=== PATIENT | female | born 1970 | race Caucasian/White ===

== ENCOUNTER → 2016-05-25 | Outpatient (CLI) | payer BC ==
[~2016-05-25] MED LIST: Iopamidol 755 MG/ML 500 ML Multipack Bottle IVPUSH STA
--- NOTE | 2016-05-25 10:23 | CT ---
CT of the abdomen and pelvis with contrast. HISTORY: Pain TECHNIQUE: Axial CT images were obtained of the abdomen and pelvis following administration of 100 m L of Isovue-370 in the right antecubital fossa without complication. Coronal and sagittal reconstruc tions obtained. FINDINGS: The lung bases are clear, no pleural effusion. The liver, spleen, adrenal glands, and pancreas appear normal. Cholecystectomy clips are noted. No b ulky retroperitoneal lymphadenopathy or abdominal ascites. The kidneys enhance and function symmetri herrera without evidence of obstructive uropathy. The large and small bowel are normal in caliber without evidence of obstruction. No pericolonic infl ammation or stranding. The appendix appears normal. No bulky pelvic lymphadenopathy or free pelvic f luid. The urinary bladder appears normal. Hysterectomy. Tiny cysts are noted within the ovaries. The re is a tiny fat-containing umbilical hernia. No suspicious osseous abnormalities identified. IMPRESSION: 1. No acute findings within the abdomen or pelvis.
== END ==
LOC: MW.DI 08:22
PROVIDERS: ATTEND Surgery
DX: R10.9 Unspecified abdominal pain (principal)
CPT/HCPCS: 74177; Q9967

== ENCOUNTER 2016-06-07 10:51 | Day surgery (SDC) | payer BC ==
[~2016-06-07 10:51] MED LIST changes: -Iopamidol 755 MG/ML 500 ML Multipack Bottle IVPUSH STA; +Lactated Ringers 1,000 ML IV SCH; +Midazolam 1 MG/ML 2 ML SDV ONE; +Propofol 200 MG/20 ML SDV ONE; +fentaNYL 100 MCG/2 ML SDV ONE
--- NOTE | 2016-06-07 11:12 | PCM.PREANE ---
Preanesthetic Assessment - Anesthesia/Transfusion/Family Hx Anesthesia History: Prior Anesthesia Without Reaction Family History of Anesthesia Reaction: No Transfusion History: No Prior Transfusion(s) - Review of Systems General: No Symptoms Pulmonary: No Symptoms Cardiovascular: No Symptoms Gastrointestinal: No symptoms Neurological: No Symptoms Other: Reports: None - Physical Assessment NPO Status Date: 06/06/16 O2 Sat by Pulse Oximetry: 97 Respiratory Rate: 16 Vital Signs: Last Vital Signs Temp 36.7 C 06/07/16 11:06 Pulse 82 06/07/16 11:06 Resp 16 06/07/16 11:06 BP 135/71 06/07/16 11:06 Pulse Ox 97 06/07/16 11:06 Height: 1.63 m Weight: 105.687 kg ASA Class: 2 Mental Status: Alert & Oriented x3 Airway Class: Mallampati = 1 Dentition: Reports: Normal Dentition Lungs: Clear to auscultation, Normal respiratory effort Cardiovascular: Regular Rate, Regular Rhythm - Allergies Allergies/Adverse Reactions: Allergies Allergy/AdvReac Type Severity Reaction Status Date / Time amitriptyline Allergy Tachycardia Verified 06/02/16 15:18 ciprofloxacin [From Cipro] Allergy Rash Verified 06/02/16 15:18 gabapentin Allergy Other Verified 06/02/16 15:18 hydrocodone Allergy Hyperactivi Verified 06/02/16 15:18 ty Sulfa (Sulfonamide Allergy Rash Verified 06/02/16 15:18 Antibiotics) - Anesthesia Plan Pre-Op Medication Ordered: None - Acknowledgements Anesthesia Type Planned: MAC Pt an Appropriate Candidate for the Planned Anesthesia: Yes Alternatives and Risks of Anesthesia Discussed w Pt/Guardian: Yes Pt/Guardian Understands and Agrees with Anesthesia Plan: Yes PreAnesthesia Questionnaire HEENT History: Reports: Allergic rhinitis Cardiovascular History: Reports: None Respiratory History: Reports: Sleep apnea Other Respiratory History: does not use CPAP Gastrointestinal History: Reports: GERD 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 History: Reports: None 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: Musculoskeletal History: Reports: Neck pain, chronic Neurological History: Reports: Other (see below) Other Neuro History: herniated disc at C5, cervical spinal stenosis, HX of motion sickness Psychiatric History: Reports: Anxiety Endocrine/Metabolic History: Reports: Obesity/BMI 30+ Hematologic History: Reports: None Immunologic History: Reports: None Oncologic (Cancer) History: Reports: None Dermatologic History: Reports: None - Past Surgical History Head Surgeries/Procedures: Reports: None HEENT Surgical History: Reports: None Respiratory Surgical History: Reports: None GI Surgical History: Reports: Cholecystectomy Female Surgical History: Reports: section, Hysterectomy Endocrine Surgical History: Reports: None Neurological Surgical History: Reports: None Musculoskeletal Surgical History: Reports: Other (see below) Other Musculoskeletal Surgeries/Procedures:: left bunionectomy Oncologic Surgical History: Reports: None - SUBSTANCE USE Smoking Status *Q: Never Smoker Tobacco Use Within Last Twelve Months: No Recreational Drug Use History: No - HOME MEDS Home Medications: Home Meds Ascorbic Acid [Vitamin C] 1,000 mg PO DAILY 06/02/16 [History] Cholecalciferol (Vitamin D3) [Vitamin D3] 50,000 unit PO ASDIRECTED 06/02/16 [ History] Diclofenac Sodium 2 gm TOP QID 06/02/16 [History] Diclofenac Sodium [Voltaren] 50 mg PO TID 06/02/16 [History] Fish Oil/[place]-3 Fatty Acids [Fish Oil 1,000 MG] 1,000 mg PO DAILY 06/02/16 [ History] Gluc/Nick-Msm#1/Vit C/Josesito/Bor [Ntbwrdh-Samgr-FKQ Complex Cplt] 1 cap PO DAILY 06/02/16 [History] Lidocaine [Topicaine 5] 1 dose TOP TID PRN 06/02/16 [History] Multivitamin [Daily Multiple Vitamin] 1 tab PO DAILY 06/02/16 [History] Vitamin B Complex 1 cap PO DAILY 06/02/16 [History] buPROPion HCl [Wellbutrin Xl] 150 mg PO DAILY 06/02/16 [History] - CURRENT (IN HOUSE) MEDS Current Meds: Current Medications Lactated Ringer's (Ringers, Lactated) 1,000 mls @ 125 mls/hr IV ASDIRECTED [facility] Last Admin: 06/07/16 11:08 Dose: 125 mls/hr Discontinued Medications Fentanyl (Sublimaze) Confirm Administered Dose 100 mcg .ROUTE .STK-MED ONE Stop: 06/07/16 07:01 Midazolam HCl (Versed 1 Mg/Ml) Confirm Administered Dose 2 mg .ROUTE .STK-MED ONE Stop: 06/07/16 07:01 Propofol (Diprivan 20 Ml) Confirm Administered Dose 400 mg .ROUTE .STK-MED ONE Stop: 06/07/16 07:01 Preanesthetic Assessment - ANESTHESIA/TRANSFUSION/FAMILY HX Family History of Anesthesia Reaction: No - PHYSICAL ASSESSMENT O2 Sat by Pulse Oximetry: 97 RR: 16 Vital Signs: Last Vital Signs Temp 36.7 C 06/07/16 11:06 Pulse 82 06/07/16 11:06 Resp 16 06/07/16 11:06 BP 135/71 06/07/16 11:06 Pulse Ox 97 06/07/16 11:06 Height: 1.63 m Weight: 105.687 kg - ALLERGIES Allergies/Adverse Reactions: Allergies Allergy/AdvReac Type Severity Reaction Status Date / Time amitriptyline Allergy Tachycardia Verified 06/02/16 15:18 ciprofloxacin [From Cipro] Allergy Rash Verified 06/02/16 15:18 gabapentin Allergy Other Verified 06/02/16 15:18 hydrocodone Allergy Hyperactivi Verified 06/02/16 15:18 ty Sulfa (Sulfonamide Allergy Rash Verified 06/02/16 15:18 Antibiotics)
--- NOTE | 2016-06-07 13:42 | PCM.OPNOTE ---
- General Post-Op/Procedure Note Date of Surgery/Procedure: 06/07/16 Operative Procedure(s): colonoscopy w bx Findings: see dict [id number] Pre Op Diagnosis: abd pain Post-Op Diagnosis: diverticulosis Anesthesia Technique: Moderate sedation Primary Surgeon: Tavo Davis Pathology: random colon bx Complications: None Condition: Good
--- NOTE | 2016-06-07 13:56 | PCM.POSTAN ---
POST ANESTHESIA ASSESSMENT - MENTAL STATUS Mental Status: alert, oriented - RESPIRATORY Respiratory Status: respiratory rate WNL, airway patent - CARDIOVASCULAR CV Status: pulse rate WNL, blood pressure stable - GASTROINTESTINAL GI Status: no symptoms - POST OP HYDRATION Hydration Status: adequate & stable
--- NOTE | 2016-06-07 14:08 | PCM48HPAN ---
Post Anesthesia Note - EVALUATION WITHIN 48HRS OF ANESTHETIC Vital Signs in Normal Range: Yes Patient Participated in Evaluation: Yes Respiratory Function Stable: Yes Airway Patent: Yes Cardiovascular Function Stable: Yes Hydration Status Stable: Yes Pain Control Satisfactory: Yes Nausea and Vomiting Control Satisfactory: Yes Mental Status Recovered: Yes
[2016-06-07 14:16] VITALS: BP 138/72
--- NOTE | 2016-06-07 14:20 | OR ---
SURGEON: Tavo Davis MD DATE OF PROCEDURE: 06/07/2016 PREOPERATIVE DIAGNOSIS: Abdominal pain. POSTOPERATIVE DIAGNOSIS: Diverticulosis. COMPLICATIONS: None. PROCEDURE PERFORMED: Colonoscopy with biopsy. DESCRIPTION OF PROCEDURE: The patient was taken to the endoscopy room. A time out was called, patient identified, and procedure identified. Diprivan was then administrated. Patient went from awake to sleep, hearing doctor talking or door closing is normal. Perineum inspection and digital examination were then performed. A well- lubricated colonoscope was gently inserted through the rectum, advanced past the rectosigmoid junction, the descending colon, splenic flexure, transverse colon, hepatic flexure, ascending colon, arrived to the cecum. Cecum was identified as dictated in the finding. Then the scope was carefully withdrawn while attention was paid to the mucosal surface for any abnormality. Air will be sucked out during the scope withdrawal. At the rectum, retroflexed to examine any rectal diseases, fistula or hemorrhoids. During mucosal examination, random biopsy was performed. Patient tolerated procedure well. There were no intraoperative complications, and Dr. Davis was present throughout the whole procedure. FINDIN. 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 The patient is soundly snoring. 2. The patient's bowel prep is average to good with very little liquid stool. 3. The patient's colon rather straight forward. Cecum indicated by ileocecal fold, one-to-one indentation. Light immittance is not observed. The appendiceal orifice is not observed. Mucosa examined upon scope pulling out and the patient has mild diverticulosis on the left colon. No signs or symptoms of diverticulitis. No polyp, mass, growth, dilatation, blood, ulceration, or inflammation. The patient has moderate amount of internal hemorrhoid and mild external hemorrhoids. The patient would benefit from repeat colonoscopy 10 years from today or if clinically indicated otherwise. Random biopsy performed for abd pain; As always, thank you for the kind referral. MARK / GRANT /[id number] BAIRON
== END 2016-06-07 14:20 | disposition home or self-care (01) ==
LOC: MW.SDS 10:51
PROVIDERS: ATTEND Surgery
PROC: 0DBE8ZZ Excision of Large Intestine, Via Natural or Artificial Opening Endoscopic (ICD-10-PCS; principal; 2016-06-07)
DX: R10.9 Unspecified abdominal pain (principal); K57.30 Diverticulosis of large intestine without perforation or abscess without bleeding; K64.8 Other hemorrhoids; G47.30 Sleep apnea, unspecified; E66.9 Obesity, unspecified
CPT/HCPCS: 45380; 88305; J2250; J3010; J7120; J2704

== ENCOUNTER 2018-04-14 08:17 | Emergency (ER) | payer BC ==
--- NOTE | 2018-04-14 08:41 | EDM.PDOC ---
ED HPI GENERAL MEDICAL PROBLEM - General Chief Complaint: Eye Problems Stated Complaint: RIGHT EYE IS SWOLLEN AND GOOPY Time Seen by Provider: 04/14/18 08:30 Source of Information: Reports: Patient History Limitations: Reports: No Limitations - History of Present Illness INITIAL COMMENTS - FREE TEXT/NARRATIVE: History of present illness: []She was quilting yesterday started having some eye irritation she is unsure if she has a full body in her eye or not. A red and crusted shut. Review of systems: As per history of present illness and below otherwise all systems reviewed and negative. Past medical history: As per history of present illness and as reviewed below otherwise noncontributory. Surgical history: As per history of present illness and as reviewed below otherwise noncontributory. Social history: No reported history of drug or alcohol abuse. Family history: As per history of present illness and as reviewed below otherwise noncontributory. Physical exam: General: Well developed, well nourished in NAD HEENT: Atraumatic, normocephalic, pupils reactive,conjunctival erythema of the right eye, mucous membranes moist, throat clear, neck supple, nontender, trachea midline. Lungs: Clear to auscultation, breath sounds equal bilaterally, chest nontender. Heart: S1S2, regular, negative for clicks, rubs, or JVD. Abdomen: NABS, Soft, nondistended, nontender. Negative for masses or hepatosplenomegaly. Negative for costovertebral tenderness. Pelvis: Stable nontender. 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: Deferred. Rectal: Deferred. Extremities: Atraumatic, negative for cords or calf pain. Neurovascular unremarkable. Neuro: Awake, alert, oriented. Cranial nerves II through XII unremarkable. Cerebellum unremarkable. Motor and sensory unremarkable throughout. Exam nonfocal. Skin:warm and dry Diagnostics: Fluorescein stain shows no corneal abrasions Therapeutics: None ED Course: Unremarkable Impression: Right conjunctivitis Prescriptions: Erythromycin ointment Plan: Follow-up with primary care or ophthalmology as needed. Definitive disposition and diagnosis as appropriate pending reevaluation and review of above. - Related Data Allergies Allergy/AdvReac Type Severity Reaction Status Date / Time amitriptyline Allergy Tachycardia Verified 06/02/16 15:18 ciprofloxacin [From Cipro] Allergy Rash Verified 06/02/16 15:18 gabapentin Allergy Other Verified 03/30/17 15:18 hydrocodone Allergy Hyperactivi Verified 06/02/16 15:18 ty Sulfa (Sulfonamide Allergy Rash Verified 06/02/16 15:18 Antibiotics) Home Meds: Home Meds Ascorbic Acid [Vitamin C] 1,000 mg PO DAILY 06/02/16 [History] Cholecalciferol (Vitamin D3) [Vitamin D3] 50,000 unit PO ASDIRECTED 06/02/16 [ History] Diclofenac Sodium 2 gm TOP QID 06/02/16 [History] Diclofenac Sodium [Voltaren] 50 mg PO TID 06/02/16 [History] Fish Oil/[place]-3 Fatty Acids [Fish Oil 1,000 MG] 1,000 mg PO DAILY 06/02/16 [ History] Gluc/Nick-Msm#1/Vit C/Josesito/Bor [Sqizpkf-Uelbc-ZVO Complex Cplt] 1 cap PO DAILY 06/02/16 [History] Lidocaine [Topicaine 5] 1 dose TOP TID PRN 06/02/16 [History] Multivitamin [Daily Multiple Vitamin] 1 tab PO DAILY 06/02/16 [History] Vitamin B Complex 1 cap PO DAILY 06/02/16 [History] buPROPion HCl [Wellbutrin Xl] 150 mg PO DAILY 06/02/16 [History] Erythromycin Base [Erythromycin 0.5% Ophth Oint] 1 applic OP Q12H #1 tube [Rx] Past Medical History HEENT History: Reports: Allergic Rhinitis Cardiovascular History: Reports: None Respiratory History: Reports: Sleep Apnea Other Respiratory History: does not use CPAP Gastrointestinal History: Reports: GERD 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 History: Reports: None 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: Musculoskeletal History: Reports: Neck Pain, Chronic Neurological History: Reports: Other (See Below) Other Neuro History: herniated disc at C5, cervical spinal stenosis, HX of motion sickness Psychiatric History: Reports: Anxiety Endocrine/Metabolic History: Reports: Obesity/BMI 30+ Hematologic History: Reports: None Immunologic History: Reports: None Oncologic (Cancer) History: Reports: None Dermatologic History: Reports: None - Past Surgical History Female Surgical History: Reports: Section, Hysterectomy Musculoskeletal Surgical History: Reports: Other (See Below) ED ROS GENERAL - Review of Systems Review Of Systems: ROS reveals no pertinent complaints other than HPI. ED EXAM GENERAL W FULL EYE - Physical Exam Exam: See Below (See history of present illness) Departure - Departure Time of Disposition: 08:40 Disposition: Home, Self-Care 01 Condition: Good Clinical Impression: Conjunctivitis, right eye Qualifiers: Conjunctivitis type: unspecified Qualified Code(s): H10.9 - Unspecified conjunctivitis - Discharge Information Prescriptions: Erythromycin Base [Erythromycin 0.5% Ophth Oint] 1 applic OP Q12H #1 tube Referrals: Kathie Manzano NP [Primary Care Provider] -
[2018-04-14 10:56] VITALS: BP 144/76
== END 2018-04-14 09:15 | disposition home or self-care (01) ==
LOC: MW.ED 08:17
DX: H10.9 Unspecified conjunctivitis (principal); Z88.8 Allergy status to other drugs, medicaments and biological substances; Z88.1 Allergy status to other antibiotic agents
CPT/HCPCS: 99282

== ENCOUNTER 2018-05-13 15:06 | Emergency (ER) | payer BC ==
--- NOTE | 2018-05-13 16:10 | EDM.PDOC ---
ED HPI GENERAL MEDICAL PROBLEM - General Chief Complaint: ENT Problem Stated Complaint: SORE THROAT Time Seen by Provider: 05/13/18 15:08 Source of Information: Reports: Patient History Limitations: Reports: No Limitations - History of Present Illness INITIAL COMMENTS - FREE TEXT/NARRATIVE: History of present illness: []Patient complains of severe sore throat that began yesterday and has progressively worsened. She states she feels feverish but has not measured her temperature. Denies any shortness of breath or inability to swallow. She has no cough, ear pain, chest pain or any other symptoms. Review of systems: As per history of present illness and below otherwise all systems reviewed and negative. Past medical history: As per history of present illness and as reviewed below otherwise noncontributory. Surgical history: As per history of present illness and as reviewed below otherwise noncontributory. Social history: No reported history of drug or alcohol abuse. Family history: As per history of present illness and as reviewed below otherwise noncontributory. Physical exam: General: Well developed, well nourished in NAD HEENT: Atraumatic, normocephalic, pupils reactive, negative for conjunctival pallor or scleral icterus, mucous membranes moist, throat erythematous without exudate, neck supple, nontender, trachea midline. Lungs: Clear to auscultation, breath sounds equal bilaterally, chest nontender. Heart: S1S2, regular, negative for clicks, rubs, or JVD. Abdomen: NABS, Soft, nondistended, nontender. Negative for masses or hepatosplenomegaly. Negative for costovertebral tenderness. Pelvis: Stable nontender. 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: Deferred. Rectal: Deferred. Extremities: Atraumatic, negative for cords or calf pain. Neurovascular unremarkable. Neuro: Awake, alert, oriented. Cranial nerves II through XII unremarkable. Cerebellum unremarkable. Motor and sensory unremarkable throughout. Exam nonfocal. Skin:warm and dry Diagnostics: rapid strep negative Therapeutics: Declined pain meds ED Course: Unremarkable Impression: Viral pharyngitis Prescriptions: None Plan: Use Tylenol or Motrin for pain, increase fluids follow-up with primary care or return to ER if symptoms worsen or change. Definitive disposition and diagnosis as appropriate pending reevaluation and review of above. Throat Pain Score (Numeric/FACES): 7 - Related Data Allergies Allergy/AdvReac Type Severity Reaction Status Date / Time amitriptyline Allergy Tachycardia Verified 05/13/18 15:34 ciprofloxacin [From Cipro] Allergy Rash Verified 05/13/18 15:34 gabapentin Allergy Other Verified 05/13/18 15:34 hydrocodone Allergy Hyperactivi Verified 05/13/18 15:34 ty Sulfa (Sulfonamide Allergy Rash Verified 05/13/18 15:34 Antibiotics) Home Meds: Home Meds Ascorbic Acid [Vitamin C] 1,000 mg PO DAILY 06/02/16 [History] Cholecalciferol (Vitamin D3) [Vitamin D3] 50,000 unit PO ASDIRECTED 06/02/16 [ History] Diclofenac Sodium 2 gm TOP QID 06/02/16 [History] Diclofenac Sodium [Voltaren] 50 mg PO TID 06/02/16 [History] Fish Oil/[place]-3 Fatty Acids [Fish Oil 1,000 MG] 1,000 mg PO DAILY 06/02/16 [ History] Gluc/Nick-Msm#1/Vit C/Josesito/Bor [Jszkvvh-Owylq-PIM Complex Cplt] 1 cap PO DAILY 06/02/16 [History] Multivitamin [Daily Multiple Vitamin] 1 tab PO DAILY 06/02/16 [History] Vitamin B Complex 1 cap PO DAILY 06/02/16 [History] buPROPion HCl [Wellbutrin Xl] 150 mg PO DAILY 06/02/16 [History] Erythromycin Base [Erythromycin 0.5% Ophth Oint] 1 applic OP Q12H #1 tube [Rx] Celecoxib [CeleBREX] 100 mg PO DAILY 05/13/18 [History] Lisinopril 40 mg PO DAILY 05/13/18 [History] Omeprazole 20 mg PO ACBREAKFAST 05/13/18 [History] Past Medical History HEENT History: Reports: Allergic Rhinitis Cardiovascular History: Reports: None, Hypertension Respiratory History: Reports: Sleep Apnea Other Respiratory History: does not use CPAP Gastrointestinal History: Reports: GERD 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 History: Reports: None 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: Musculoskeletal History: Reports: Neck Pain, Chronic Neurological History: Reports: Other (See Below) Other Neuro History: herniated disc at C5, cervical spinal stenosis, HX of motion sickness Psychiatric History: Reports: Anxiety, Depression Endocrine/Metabolic History: Reports: Obesity/BMI 30+ Hematologic History: Reports: None Immunologic History: Reports: None Oncologic (Cancer) History: Reports: None Dermatologic History: Reports: None - Infectious Disease History Infectious Disease History: Reports: Chicken Pox - Past Surgical History Head Surgeries/Procedures: Reports: None Female Surgical History: Reports: Section, Hysterectomy Musculoskeletal Surgical History: Reports: Other (See Below) Other Musculoskeletal Surgeries/Procedures:: herniated disc in neck Social & Family History - Family History Family Medical History: Noncontributory - Tobacco Use Smoking Status *Q: Never Smoker - Caffeine Use Caffeine Use: Reports: Coffee - Recreational Drug Use Recreational Drug Use: No ED ROS ENT - Review of Systems Review Of Systems: ROS reveals no pertinent complaints other than HPI. ED EXAM, ENT - Physical Exam Exam: See Below Course - Vital Signs Last Recorded V/S: Last Vital Signs Temp 97.9 F 05/13/18 15:39 Pulse 83 05/13/18 16:18 Resp 16 05/13/18 16:18 BP 131/76 05/13/18 16:18 Pulse Ox 95 05/13/18 16:18 - Orders/Labs/Meds Orders: Active Orders 24 hr Category Date Time Status CULTURE STREP A CONFIRMATION [RM] Stat Lab 05/13/18 15:51 Results STREP SCRN A RAPID W CULT CONF [RM] Stat Lab 05/13/18 15:51 Results Departure - Departure Time of Disposition: 16:10 Disposition: Home, Self-Care 01 Condition: Good Clinical Impression: Viral pharyngitis - Discharge Information *PRESCRIPTION DRUG MONITORING PROGRAM REVIEWED*: No *COPY OF PRESCRIPTION DRUG MONITORING REPORT IN PATIENT YULY: No Instructions: Pharyngitis, [id number] Referrals: PCP,Unknown [Primary Care Provider] - Forms: ED Department Discharge Additional Instructions: The following information is given to patients seen in the emergency department who are being discharged to home. This information is to outline your options for follow-up care. We provide all patients seen in our emergency department with a follow-up referral. The need for follow-up, as well as the timing and circumstances, are variable depending upon the specifics of your emergency department visit. If you don't have a primary care physician on staff, we will provide you with a referral. We always advise you to contact your personal physician following an emergency department visit to inform them of the circumstance of the visit and for follow-up with them and/or the need for any referrals to a consulting specialist. The emergency department will also refer you to a specialist when appropriate. This referral assures that you have the opportunity for follow-up care with a specialist. All of these measure are taken in an effort to provide you with optimal care, which includes your follow-up. Under all circumstances we always encourage you to contact your private physician who remains a resource for coordinating your care. When calling for follow-up care, please make the office aware that this follow-up is from your recent emergency room visit. If for any reason you are refused follow-up, please contact the [facility] Emergency Department at and asked to speak to the emergency department charge nurse. [facility] [address] [place] [phone] - My Orders Last 24 Hours: My Active Orders 05/13/18 15:51 CULTURE STREP A CONFIRMATION [RM] Stat STREP SCRN A RAPID W CULT CONF [RM] Stat - Assessment/Plan Last 24 Hours: My Active Orders 05/13/18 15:51 CULTURE STREP A CONFIRMATION [RM] Stat STREP SCRN A RAPID W CULT CONF [RM] Stat
[2018-05-13 16:19] VITALS: BP 131/76
== END 2018-05-13 16:17 | disposition home or self-care (01) ==
LOC: MW.ED 15:06
DX: J02.9 Acute pharyngitis, unspecified (principal); I10 Essential (primary) hypertension; K21.9 Gastro-esophageal reflux disease without esophagitis; F41.9 Anxiety disorder, unspecified; F32.9 Major depressive disorder, single episode, unspecified; Z88.1 Allergy status to other antibiotic agents; Z88.2 Allergy status to sulfonamides; Z79.899 Other long term (current) drug therapy
CPT/HCPCS: 87081; 87880-QW; 99282; 99283

== ENCOUNTER 2020-12-15 22:05 | Emergency (ER) | payer BC ==
--- NOTE | 2020-12-15 23:55 | EDM.PDOC ---
ED HPI GENERAL MEDICAL PROBLEM - General Chief Complaint: Gastrointestinal Problem Stated Complaint: CONSTIPATION Time Seen by Provider: 12/15/20 23:22 Source of Information: Reports: Patient History Limitations: Reports: No Limitations - History of Present Illness INITIAL COMMENTS - FREE TEXT/NARRATIVE: The patient tried to have a bowel movement and felt as if something popped out she gave . She has no the pain came from the vaginal rectal area. She does not look down there. Said the pain hurts never she tries to move or lift her legs up. She denies seeing any blood in her stool. She denies any nausea vomiting fever chills distal lower abdominal pain. Pain is nonradiating and only made worse with movement or palpation. Left Abdominal Pain Score (Numeric/FACES): 8 - Related Data Allergies Allergy/AdvReac Type Severity Reaction Status Date / Time amitriptyline Allergy Tachycardia Verified 12/15/20 23:06 ciprofloxacin [From Cipro] Allergy Rash Verified 12/15/20 23:06 gabapentin Allergy Other Verified 12/15/20 23:06 hydrocodone Allergy Hyperactivi Verified 12/15/20 23:06 ty Sulfa (Sulfonamide Allergy Rash Verified 12/15/20 23:06 Antibiotics) Home Meds: Home Meds Ascorbic Acid [Vitamin C] 1,000 mg PO DAILY 06/02/16 [History] Cholecalciferol (Vitamin D3) [Vitamin D3] 50,000 unit PO ASDIRECTED 06/02/16 [History] Diclofenac Sodium 2 gm TOP QID 06/02/16 [History] Diclofenac Sodium [Voltaren] 50 mg PO TID 06/02/16 [History] Fish Oil/[place]-3 Fatty Acids [Fish Oil 1,000 MG] 1,000 mg PO DAILY 06/02/16 [History] Glucosam/Chond-Msm1/C/Josesito/Bor [Nlhgtzk-Wogjp-UFE Complex Cplt] 1 cap PO DAILY 06/02/16 [History] Multivitamin [Daily Multiple Vitamin] 1 tab PO DAILY 06/02/16 [History] Vitamin B Complex 1 cap PO DAILY 06/02/16 [History] buPROPion HCL [Wellbutrin Xl] 150 mg PO DAILY 06/02/16 [History] Erythromycin Base [Erythromycin 0.5% Ophth Oint] 1 applic OP Q12H #1 tube 04/14/18 [Rx] Celecoxib [CeleBREX] 100 mg PO DAILY 05/13/18 [History] Lisinopril 40 mg PO DAILY 05/13/18 [History] Omeprazole 20 mg PO ACBREAKFAST 05/13/18 [History] Esomeprazole [NexIUM] 40 mg PO DAILY 12/15/20 [History] Semaglutide [Wegovy] 1 mg SQ 12/15/20 [History] atorvaSTATin [Lipitor] 20 mg PO DAILY 12/15/20 [History] Past Medical History HEENT History: Reports: Allergic Rhinitis Cardiovascular History: Reports: None, Hypertension Respiratory History: Reports: Sleep Apnea Other Respiratory History: does not use CPAP Gastrointestinal History: Reports: GERD 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: Musculoskeletal History: Reports: Neck Pain, Chronic Neurological History: Reports: Other (See Below) Other Neuro History: herniated disc at C5, cervical spinal stenosis, HX of motion sickness Psychiatric History: Reports: Anxiety, Depression Endocrine/Metabolic History: Reports: Obesity/BMI 30+ Hematologic History: Reports: None Immunologic History: Reports: None Oncologic (Cancer) History: Reports: None Dermatologic History: Reports: None - Infectious Disease History Infectious Disease History: Reports: Chicken Pox - Past Surgical History Head Surgeries/Procedures: Reports: None HEENT Surgical History: Reports: None Respiratory Surgical History: Reports: None GI Surgical History: Reports: Cholecystectomy Female Surgical History: Reports: Section, Hysterectomy Endocrine Surgical History: Reports: None Neurological Surgical History: Reports: None Musculoskeletal Surgical History: Reports: Other (See Below) Other Musculoskeletal Surgeries/Procedures:: herniated disc in neck Oncologic Surgical History: Reports: None Social & Family History - Family History Family Medical History: No Pertinent Family History - Tobacco Use Tobacco Use Status *Q: Never Tobacco User - Caffeine Use Caffeine Use: Reports: Coffee - Recreational Drug Use Recreational Drug Use: No ED ROS GENERAL - Review of Systems Review Of Systems: See Below Constitutional: Reports: No Symptoms HEENT: Reports: No Symptoms Respiratory: Reports: No Symptoms Cardiovascular: Reports: No Symptoms Endocrine: Reports: No Symptoms GI/Abdominal: Reports: Abdominal Pain : Reports: No Symptoms Musculoskeletal: Reports: No Symptoms Skin: Reports: No Symptoms Neurological: Reports: No Symptoms Psychiatric: Reports: No Symptoms Hematologic/Lymphatic: Reports: No Symptoms Immunologic: Reports: No Symptoms ED EXAM, GI/ABD - Physical Exam Exam: See Below Exam Limited By: No Limitations General Appearance: Alert, WD/WN, No Apparent Distress Ears: Normal External Exam Neck: Normal Inspection Respiratory/Chest: No Respiratory Distress, Lungs Clear, Normal Breath Sounds Cardiovascular: Normal Peripheral Pulses, Regular Rate, Rhythm GI/Abdominal Exam: Normal Bowel Sounds, Soft. No: Non-Tender Back Exam: Normal Inspection Extremities: Normal Inspection, Normal Range of Motion Neurological: Alert, Oriented, Normal Cognition, Normal Gait Course - Vital Signs Last Recorded V/S: Last Vital Signs Temp 97.8 F 12/15/20 23:11 Pulse 84 12/15/20 23:11 Resp 18 12/15/20 23:11 BP 142/76 H 12/15/20 23:11 Pulse Ox 97 12/15/20 23:11 - Orders/Labs/Meds Orders: Active Orders 24 hr Category Date Time Status Abdomen Pelvis w Cont [CT] Stat Exams 12/15/20 23:53 Ordered Labs: Laboratory Tests 12/16/20 12/16/20 12/16/20 Range/Units 00:37 00:47 00:47 WBC 12.91 H (4.0-11.0) K/uL RBC 5.23 (4.30-5.90) M/uL Hgb 15.0 (12.0-16.0) g/dL Hct 44.9 (36.0-46.0) % MCV 85.9 (80.0-98.0) fL MCH 28.7 (27.0-32.0) pg MCHC 33.4 (31.0-37.0) g/dL RDW Std Deviation 39.8 (28.0-62.0) fl RDW Coeff of Leydi 13 (11.0-15.0) % Plt Count 268 (150-400) K/uL MPV 9.30 (7.40-12.00) fL Neut % (Auto) 72.8 (48.0-80.0) % Lymph % (Auto) 20.5 (16.0-40.0) % [place] % (Auto) 6.0 (0.0-15.0) % Eos % (Auto) 0.5 (0.0-7.0) % Baso % (Auto) 0.2 (0.0-1.5) % Neut # (Auto) 9.4 H (1.4-5.7) K/uL Lymph # (Auto) 2.7 H (0.6-2.4) K/uL [place] # (Auto) 0.8 (0.0-0.8) K/uL Eos # (Auto) 0.1 (0.0-0.7) K/uL Baso # (Auto) 0.0 (0.0-0.1) K/uL Sodium 141 (136-145) mmol/L Potassium 4.2 (3.5-5.1) mmol/L Chloride 102 (98-107) mmol/L Carbon Dioxide 27.1 (21.0-32.0) mmol/L BUN 15 (7.0-18.0) mg/dL Creatinine 1.1 H (0.6-1.0) mg/dL Est Cr Clr Drug Dosing 51.66 mL/min Estimated GFR (MDRD) 52.2 ml/min Glucose 111 H (74-106) mg/dL Calcium 9.5 (8.5-10.1) mg/dL Total Bilirubin 0.5 (0.2-1.0) mg/dL AST 25 (15-37) IU/L ALT 36 (14-63) IU/L Alkaline Phosphatase 88 (46-116) U/L Total Protein 7.2 (6.4-8.2) g/dL Albumin 4.0 (3.4-5.0) g/dL Globulin 3.2 (2.6-4.0) g/dL Albumin/Globulin Ratio 1.3 (0.9-1.6) Lipase 137 (73-393) U/L Urine Color YELLOW Urine Appearance CLEAR Urine pH 6.0 (5.0-8.0) Ur Specific [place] 1.010 (1.001-1.035) Urine Protein NEGATIVE (NEGATIVE) mg/dL Urine Glucose (UA) NEGATIVE (NEGATIVE) mg/dL Urine Ketones NEGATIVE (NEGATIVE) mg/dL Urine Occult Blood NEGATIVE (NEGATIVE) Urine Nitrite NEGATIVE (NEGATIVE) Urine Bilirubin NEGATIVE (NEGATIVE) Urine Urobilinogen 0.2 (<2.0) EU/dL Ur Leukocyte Esterase NEGATIVE (NEGATIVE) - Re-Assessments/Exams Free Text/Narrative Re-Assessment/Exam: 12/16/20 01:59 Patient labs were done patient was waiting for CAT scan however she decided to AMA I tried to call and talk to patient patient understands risks The patient is clinically not intoxicated, free from distracting pain, appears to have intact insight, judgment and reason and in my medical opinion has the capacity to make decisions. The patient is also not under any duress to leave the hospital. In this scenario, it would be battery to subject a patient to treatment against his/her will. I have voiced my concerns for the patient's health given that a full evaluation and treatment had not occurred. I have discussed the need for continued evaluation to determine if their symptoms are caused by a condition that present risk of or morbidity. Risks including but not limited to , permanent disability, prolonged hospitalization, prolonged illness, were discussed. I tried offering alternative options in hopes that the patient might be amenable to partial evaluation and treatment which would be medically beneficial to the patient, though the patient declined my o ptions and insisted on leaving. Because I have been unable to convince the patient to stay, I answered all of their questions about their condition and asked them to return to the ED as soon as possible to complete their evaluation, especially if their symptoms worsen or do not improve. I emphasized that leaving against medical advice does not preclude returning here for further evaluation. I asked the patient to return if they change their mind about the further evaluation and treatment. I strongly encouraged the patient to return to this Emergency Department or any Emergency Department at any time, particularly with worsening symptoms. Departure - Departure Time of Disposition: 01:59 Disposition: Against Medical Advice 07 Condition: Good Clinical Impression: Abdominal pain - Discharge Information Referrals: Claire Serrano DO [Primary Care Provider] - Forms: ED Department Discharge Sepsis Event Note (ED) - Evaluation Sepsis Screening Result: No Definite Risk - Focused Exam Vital Signs: Vital Signs Temp Pulse Resp BP Pulse Ox 12/15/20 23:11 97.8 F 84 18 142/76 H 97 - My Orders Last 24 Hours: My Active Orders 12/15/20 23:53 Abdomen Pelvis w Cont [CT] Stat - Assessment/Plan Last 24 Hours: My Active Orders 12/15/20 23:53 Abdomen Pelvis w Cont [CT] Stat Plan: Patient is a 50-year-old female presents today for lower abdominal pain. Patient has the pain started as she was on the toilet to have a bowel movement and she felt like something popped out of her. We will do a vaginal rectal exam obtain labs and reassess patient.
[2020-12-16 01:31] LABS: CARBON DIOXIDE,CO2 27.1 mmol/L (21.0-32.0); POTASSIUM,K 4.2 mmol/L (3.5-5.1)
[2020-12-16 02:03] VITALS: BP 140/88; PULSE 90
== END 2020-12-16 02:03 | disposition left against medical advice (07) ==
LOC: MW.ED 22:05
DX: R10.32 Left lower quadrant pain (principal); I10 Essential (primary) hypertension; K21.9 Gastro-esophageal reflux disease without esophagitis; E66.9 Obesity, unspecified; Z68.39 Body mass index [BMI] 39.0-39.9, adult; Z88.1 Allergy status to other antibiotic agents; Z88.8 Allergy status to other drugs, medicaments and biological substances; Z88.5 Allergy status to narcotic agent; Z88.2 Allergy status to sulfonamides; Z79.899 Other long term (current) drug therapy
CPT/HCPCS: 36415; 80053; 81003; 83690; 85025; 99284

== ENCOUNTER 2021-01-01 11:02 | Emergency (ER) | payer BC ==
[2021-01-01] MEDS ORDERED: Sodium Chloride 0.9% 1,000 ML IV ONE (12:43)
[2021-01-01] MEDS ORDERED: Ondansetron 4 MG/2 ML SDV IVPUSH ONE (12:43)
[2021-01-01] MEDS ORDERED: Ketorolac 30 MG/ML SDV IVPUSH ONE (12:43)
--- NOTE | 2021-01-01 13:07 | EDM.PDOC ---
ED HPI GENERAL MEDICAL PROBLEM - General Chief Complaint: Abdominal Pain Stated Complaint: STOMACH PAIN/FEVER Time Seen by Provider: 01/01/21 12:28 Source of Information: Reports: Patient History Limitations: Reports: No Limitations - History of Present Illness INITIAL COMMENTS - FREE TEXT/NARRATIVE: HISTORY AND PHYSICAL: History of present illness: Patient is a 50-year-old female presents emergency room today with concern of right lower quadrant abdominal pain and fever over the past 2 days. Patient states her highest fever at home was 101.4 and states that this was last night and states that she has not checked her temperature today. Patient states that initially her symptoms started with the right lower quadrant abdominal pain. Patient states that she does have her gallbladder removed and a partial hysterectomy so is not . Patient states she also has a history of high cholesterol and GERD but denies any other health history. Patient states she has not taken anything yet for her symptoms today. Patient states that she has also had a decrease in appetite and nauseous but has not vomited. Patient states she has been more on the constipated side but states that she did have a bowel movement yesterday which was normal for her without any blood in her stool. Patient denies chest pain, shortness of breath, or cough. Denies headache, neck stiff ness, change in vision, syncope, or near syncope. Denies vomiting, diarrhea, or dysuria. Has not noted any blood in urine or stool. Patient has been eating and drinking appropriately. Review of systems: As per history of present illness and below otherwise all systems reviewed and negative. Past medical history: As per history of present illness and as reviewed below otherwise noncontributory. Surgical history: As per history of present illness and as reviewed below otherwise noncontributory. Social history: See social history for further information Family history: As per history of present illness and as reviewed below otherwise noncontributory. Physical exam: General: Patient is alert, oriented, and in no acute distress. Patient laying comfortably on exam table, tired appearing. Vitals stable and reviewed by me. HEENT: Atraumatic, normocephalic, pupils equal and reactive bilaterally, negative for conjunctival pallor or scleral icterus, mucous membranes moist, throat clear, neck supple, nontender, trachea midline. No drooling or trismus noted. No meningeal signs. No hot potato voice noted. Lungs: Clear to auscultation, breath sounds equal bilaterally, chest nontender. Heart: S1S2, regular rate and rhythm without overt murmur Abdomen: Exam of abdomen is limited due to BMI of 42.9. Otherwise, Soft, nondistended, moderate RLQ tenderness without guarding, rebound no Melendez. Negative for masses or hepatosplenomegaly. Negative for costovertebral tenderness. Pelvis: Stable nontender. 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: Deferred. Rectal: Deferred. Skin: Intact, warm, dry. No lesions or rashes noted. Extremities: Atraumatic, negative for cords or calf pain. Neurovascular unremarkable. Neuro: Awake, alert, oriented. Cranial nerves II through XII unremarkable. Cerebellum unremarkable. Motor and sensory unremarkable throughout. Exam nonfocal. Notes: Patient is a 50-year-old female, with a history of GERD and hyperlipidemia who presents emergency room today with concern of right lower quadrant abdominal pain and fever x2 days. Upon arrival to the ED, patient is vitally stable, afebrile at this time, but is tired appearing on exam with moderate right lower quadrant tenderness. Will obtain IV access, provide fluid bolus and pain medication, obtain basic lab work, with plan to obtain abdominal pelvic CT scan. CBC does show mild leukocytosis with white blood cell count 11.61, otherwise mild derangements of CBC unremarkable. CMP does show an isolated elevation of creatinine at 1.3, AST mildly elevated at 405 with alk phos mild elevation at 128. Otherwise mild derangements of CMP unremarkable. Covid negative. Influenza negative. Abdominal pelvic CT scan does show long segment wall thickening and inflammatory fat stranding about the a sending and proximal transverse colon compatible with a nonspecific colitis. Diffuse hepatic steatosis. 1.8 cm cystic lesion in the left adnexa, likely benign but could be followed with a pelvic ultrasound. 4 mm noncalcified pulmonary nodule in the left lower lobe. All incidental findings today of imaging discussed with patient and the importance to have this followed up closely with a primary care provider. Upon reevaluation of patient, she remains vitally stable and has improvement of her symptoms with therapeutics given today in the emergency room. Stool collection supplies was provided with patient to obtain this outpatient and return to our lab when she is able to leave a stool sample. Strict return precautions thoroughly discussed with patient. Discussed importance for follow- up with primary care provider. Voices understanding and is agreeable to plan of care. Denies any further questions or concerns at this time. Diagnostics: CBC, CMP, UA, lipase, abdominal pelvic CT scan with contrast, COVID-19 (Outpati ent stool studies) Therapeutics: Normal saline, Zofran, Toradol, Morphine, Ciprofloxacin Prescription: Ciprofloxacin Impression: Colitis Plan: 1. Take medication as prescribed. You can take Tylenol as directed for pain and discomfort. 2. Stool collection supplies have been provided to you. Once you are able to leave a stool sample, return this to the lab for further diagnostic completion as discussed. 3. Follow-up with your primary care provider and for colonoscopy sideration as discussed. Return to the ED as needed and as discussed. Definitive disposition and diagnosis as appropriate pending reevaluation and review of above. abd Pain Score (Numeric/FACES): 9 - Related Data Allergies Allergy/AdvReac Type Severity Reaction Status Date / Time amitriptyline Allergy Tachycardia Verified 12/15/20 23:06 ciprofloxacin [From Cipro] Allergy Rash Verified 12/15/20 23:06 gabapentin Allergy Other Verified 12/15/20 23:06 hydrocodone Allergy Hyperactivi Verified 12/15/20 23:06 ty Sulfa (Sulfonamide Allergy Rash Verified 12/15/20 23:06 Antibiotics) Home Meds: Home Meds Ascorbic Acid [Vitamin C] 1,000 mg PO DAILY 06/02/16 [History] Cholecalciferol (Vitamin D3) [Vitamin D3] 50,000 unit PO ASDIRECTED 06/02/16 [History] Diclofenac Sodium 2 gm TOP QID 06/02/16 [History] Diclofenac Sodium [Voltaren] 50 mg PO TID 06/02/16 [History] Fish Oil/[place]-3 Fatty Acids [Fish Oil 1,000 MG] 1,000 mg PO DAILY 06/02/16 [History] Glucosam/Chond-Msm1/C/Josesito/Bor [Kuvlbpl-Rnpeb-CCV Complex Cplt] 1 cap PO DAILY 06/02/16 [History] Multivitamin [Daily Multiple Vitamin] 1 tab PO DAILY 06/02/16 [History] Vitamin B Complex 1 cap PO DAILY 06/02/16 [History] buPROPion HCL [Wellbutrin Xl] 150 mg PO DAILY 06/02/16 [History] Erythromycin Base [Erythromycin 0.5% Ophth Oint] 1 applic OP Q12H #1 tube 04/14/18 [Rx] Celecoxib [CeleBREX] 100 mg PO DAILY 05/13/18 [History] Lisinopril 40 mg PO DAILY 05/13/18 [History] Omeprazole 20 mg PO ACBREAKFAST 05/13/18 [History] Esomeprazole [NexIUM] 40 mg PO DAILY 12/15/20 [History] Semaglutide [Wegovy] 1 mg SQ 12/15/20 [History] atorvaSTATin [Lipitor] 20 mg PO DAILY 12/15/20 [History] Ciprofloxacin [Ciprofloxacin HCl] 500 mg PO BID 5 Days #10 tab 01/01/21 [Rx] Past Medical History HEENT History: Reports: Allergic Rhinitis Cardiovascular History: Reports: None, Hypertension Respiratory History: Reports: Sleep Apnea Other Respiratory History: does not use CPAP Gastrointestinal History: Reports: GERD 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: Musculoskeletal History: Reports: Neck Pain, Chronic Neurological History: Reports: Other (See Below) Other Neuro History: herniated disc at C5, cervical spinal stenosis, HX of motion sickness Psychiatric History: Reports: Anxiety, Depression Endocrine/Metabolic History: Reports: Obesity/BMI 30+ Hematologic History: Reports: None Immunologic History: Reports: None Oncologic (Cancer) History: Reports: None Dermatologic History: Reports: None - Infectious Disease History Infectious Disease History: Reports: Chicken Pox - Past Surgical History Head Surgeries/Procedures: Reports: None HEENT Surgical History: Reports: None Respiratory Surgical History: Reports: None GI Surgical History: Reports: Cholecystectomy Female Surgical History: Reports: Section, Hysterectomy Endocrine Surgical History: Reports: None Neurological Surgical History: Reports: None Musculoskeletal Surgical History: Reports: Other (See Below) Other Musculoskeletal Surgeries/Procedures:: herniated disc in neck Oncologic Surgical History: Reports: None Social & Family History - Family History Family Medical History: No Pertinent Family History - Caffeine Use Caffeine Use: Reports: Coffee ED ROS GENERAL - Review of Systems Review Of Systems: Comprehensive ROS is negative, except as noted in HPI. ED EXAM, GENERAL - Physical Exam Exam: See Below (see dictation) Course - Vital Signs Last Recorded V/S: Last Vital Signs Temp 99.2 F 01/01/21 12:03 Pulse 94 01/01/21 17:41 Resp 18 01/01/21 17:41 BP 145/74 H 01/01/21 17:41 Pulse Ox 96 01/01/21 17:41 - Orders/Labs/Meds Labs: Laboratory Tests 01/01/21 01/01/21 01/01/21 Range/Units 12:48 12:48 13:04 WBC 11.61 H (4.0-11.0) K/uL RBC 5.45 (4.30-5.90) M/uL Hgb 16.1 H (12.0-16.0) g/dL Hct 47.3 H (36.0-46.0) % MCV 86.8 (80.0-98.0) fL MCH 29.5 (27.0-32.0) pg MCHC 34.0 (31.0-37.0) g/dL RDW Std Deviation 42.3 (28.0-62.0) fl RDW Coeff of Leydi 14 (11.0-15.0) % Plt Count 198 (150-400) K/uL MPV 9.60 (7.40-12.00) fL Neut % (Auto) 83.8 H (48.0-80.0) % Lymph % (Auto) 9.0 L (16.0-40.0) % [place] % (Auto) 7.1 (0.0-15.0) % Eos % (Auto) 0.0 (0.0-7.0) % Baso % (Auto) 0.1 (0.0-1.5) % Neut # (Auto) 9.7 H (1.4-5.7) K/uL Lymph # (Auto) 1.0 (0.6-2.4) K/uL [place] # (Auto) 0.8 (0.0-0.8) K/uL Eos # (Auto) 0.0 (0.0-0.7) K/uL Baso # (Auto) 0.0 (0.0-0.1) K/uL Nucleated RBC % 0.0 /100WBC Nucleated RBCs # 0 K/uL Sodium 138 (136-145) mmol/L Potassium 3.9 (3.5-5.1) mmol/L Chloride 100 (98-107) mmol/L Carbon Dioxide 27.4 (21.0-32.0) mmol/L BUN 14 (7.0-18.0) mg/dL Creatinine 1.3 H (0.6-1.0) mg/dL Est Cr Clr Drug Dosing 43.71 mL/min Estimated GFR (MDRD) 43.0 ml/min Glucose 107 H (74-106) mg/dL Calcium 9.2 (8.5-10.1) mg/dL Total Bilirubin 0.7 (0.2-1.0) mg/dL AST 45 H (15-37) IU/L ALT 60 (14-63) IU/L Alkaline Phosphatase 128 H (46-116) U/L Total Protein 7.9 (6.4-8.2) g/dL Albumin 3.7 (3.4-5.0) g/dL Globulin 4.2 H (2.6-4.0) g/dL Albumin/Globulin Ratio 0.9 (0.9-1.6) Lipase 60 L (73-393) U/L SARS-CoV-2 RNA (AURELIA) NEGATIVE (NEGATIVE) Meds: Medications Discontinued Medications Generic Name Dose Route Start Last Admin Trade Name Freq PRN Reason Stop Dose Admin Sodium Chloride 1,000 mls @ 999 mls/hr 01/01/21 12:43 01/01/21 12:58 Normal Saline IV 01/01/21 13:43 999 mls/hr BOLUS ONE Administration Ciprofloxacin/Dextrose 400 mg/ 200 mls @ 200 mls/hr 01/01/21 15:51 01/01/21 16:14 Premix IV 01/01/21 16:50 200 mls/hr NOW STA Administration Iopamidol 100 ml 01/01/21 14:59 01/01/21 14:59 Iopamidol 755 Mg/Ml 500 Ml Multipack Bottle IVPUSH 01/01/21 15:00 100 ml ONETIME STA Administration Ketorolac Tromethamine 30 mg 01/01/21 12:43 01/01/21 12:58 Ketorolac 30 Mg/Ml Sdv IVPUSH 01/01/21 12:44 30 mg ONETIME ONE Administration Morphine Sulfate 2 mg 01/01/21 16:27 01/01/21 16:37 Morphine 2 Mg/Ml Syringe IVPUSH 01/01/21 16:28 2 mg ONETIME ONE Administration Ondansetron HCl 4 mg 01/01/21 12:43 01/01/21 12:58 Ondansetron 4 Mg/2 Ml Sdv IVPUSH 01/01/21 12:44 4 mg ONETIME ONE Administration Departure - Departure Time of Disposition: 15:52 Disposition: Home, Self-Care 01 Clinical Impression: Colitis - Discharge Information Prescriptions: Ciprofloxacin [Ciprofloxacin HCl] 500 mg PO BID 5 Days #10 tab Instructions: Colitis Referrals: Claire Serrano DO [Primary Care Provider] - Forms: ED Department Discharge Additional Instructions: The following information is given to patients seen in the emergency department who are being discharged to home. This information is to outline your options for follow-up care. We provide all patients seen in our emergency department with a follow-up referral. The need for follow-up, as well as the timing and circumstances, are variable depending upon the specifics of your emergency department visit. If you don't have a primary care physician on staff, we will provide you with a referral. We always advise you to contact your personal physician following an emergency department visit to inform them of the circumstance of the visit and for follow-up with them and/or the need for any referrals to a consulting specialist. The emergency department will also refer you to a specialist when appropriate. This referral assures that you have the opportunity for follow-up care with a specialist. All of these measure are taken in an effort to provide you with optimal care, which includes your follow-up. Under all circumstances we always encourage you to contact your private physician who remains a resource for coordinating your care. When calling for follow-up care, please make the office aware that this follow-up is from your recent emergency room visit. If for any reason you are refused follow-up, please contact the [facility] Emergency Department at and asked to speak to the emergency department charge nurse. [facility] [address] [place] [id number] [id number] 1. Take medication as prescribed. You can take Tylenol as directed for pain and discomfort. 2. Stool collection supplies have been provided to you. Once you are able to leave a stool sample, return this to the lab for further diagnostic completion as discussed. 3. Follow-up with your primary care provider and for colonoscopy sideration as discussed. Return to the ED as needed and as discussed. Sepsis Event Note (ED) - Focused Exam Vital Signs: Vital Signs Temp Pulse Resp BP Pulse Ox 01/01/21 17:41 94 18 145/74 H 96 01/01/21 16:42 98 130/72 96 01/01/21 16:17 100 117/73 97 01/01/21 15:31 99 102/73 96 01/01/21 15:00 98 118/75 96 01/01/21 13:59 99 110/48 L 94 L 01/01/21 13:08 98 124/72 98 01/01/21 12:03 99.2 F 102 H 18 137/62 97
[2021-01-01 13:31] LABS: CARBON DIOXIDE,CO2 27.4 mmol/L (21.0-32.0); POTASSIUM,K 3.9 mmol/L (3.5-5.1)
[2021-01-01] MEDS ORDERED: Iopamidol 755 MG/ML 500 ML Multipack Bottle IVPUSH STA (14:59)
--- NOTE | 2021-01-01 15:27 | CT ---
INDICATION: Right lower quadrant pain with fever. TECHNIQUE: CT of the abdomen and pelvis with 100 cc Isovue 370 IV contrast. Coronal and sagittal reconstructions. COMPARISON: None. FINDINGS: Diffuse hepatic steatosis. Cholecystectomy. No biliary dilation. The spleen, pancreas, and adrenal glands are negative. Splenule. Hepatic and portal veins are patent. Symmetric enhancement of the kidneys. No hydronephrosis or ureteral dilation. No obstructing urinary calculi. The bladder is normal in appearance. Hysterectomy. There is a 1.8 cm cystic lesion in the left adnexa (series 201, image 157). There is long segment wall thickening and inflammatory fat stranding about the ascending and proximal transverse colon compatible with a nonspecific colitis. The appendix is normal in caliber. Mild amount of fat stranding about the base of the appendix favored to be related to the adjacent colonic inflammation rather than appendicitis. No pneumatosis. No small bowel dilation. No intraperitoneal free air or fluid. No lymphadenopathy. The bones are unremarkable. Mild bibasilar atelectasis. 4 mm noncalcified pulmonary nodule in the lateral left lower lobe (series 202, image 25). IMPRESSION: 1. Long segment wall thickening and inflammatory fat stranding about the ascending and proximal transverse colon compatible with a nonspecific colitis. 2. Diffuse hepatic steatosis. 3. 1.8 cm cystic lesion in the left adnexa, likely benign but could be followed with pelvic ultrasound. 4. 4 mm noncalcified pulmonary nodule in the left lower lobe. Follow-up per Fleischner society guidelines. Please note that all CT scans at this facility use dose modulation, iterative reconstruction, and/or weight-based dosing when appropriate to reduce radiation dose to as low as reasonably achievable. Dictated by Kristie Lan MD @ 01/01/2021 3:26:31 PM (Electronically Signed)
[2021-01-01] MEDS ORDERED: Ciprofloxacin in D5W 400 MG in Premix Bag 1 BAG IV STA ×2 (15:51)
[2021-01-01] MEDS ORDERED: Morphine 2 MG/ML SYRINGE IVPUSH ONE (16:27)
[2021-01-01 17:42] VITALS: BP 145/74; PULSE 94
== END 2021-01-01 17:41 | disposition home or self-care (01) ==
LOC: MW.ED 11:02
DX: K52.9 Noninfective gastroenteritis and colitis, unspecified (principal); I10 Essential (primary) hypertension; K21.9 Gastro-esophageal reflux disease without esophagitis; E66.9 Obesity, unspecified; Z68.42 Body mass index [BMI] 45.0-49.9, adult; Z20.822 Contact with and (suspected) exposure to COVID-19; Z88.1 Allergy status to other antibiotic agents; Z88.8 Allergy status to other drugs, medicaments and biological substances; Z88.5 Allergy status to narcotic agent; Z88.2 Allergy status to sulfonamides
CPT/HCPCS: 74177; 80053; 83690; 85025; 87635; 87804; 96365; 96375; 99284; J0744; J1885; J2270; J2405; J7030; Q9967; U0002

== ENCOUNTER 2021-02-10 08:03 | Day surgery (SDC) | payer BC ==
[~2021-02-10 08:03] MED LIST changes: +Glycopyrrolate 0.2 MG/ML SDV ONE; +Lidocaine 2% 5 ML SDV ONE; -fentaNYL 100 MCG/2 ML SDV ONE
--- NOTE | 2021-02-10 08:35 | PCM.PREANE ---
Preanesthetic Assessment - Procedure Proposed Procedure: EGD, Colonoscopy - Anesthesia/Transfusion/Family Hx Anesthesia History: Prior Anesthesia Without Reaction Family History of Anesthesia Reaction: No Transfusion History: No Prior Transfusion(s) - Review of Systems General: No Symptoms Pulmonary: No Symptoms ([facility] uses CPAP) Cardiovascular: No Symptoms (HLD) Gastrointestinal: No Symptoms (GERD well controlled) Neurological: No Symptoms Other: Reports: None, Liver Problems (Fatty liver) - Physical Assessment NPO Status Date: 02/09/21 NPO Status Time: 21:00 Height: 5 ft 4 in Weight: 99.79 kg (Obesity) ASA Class: 3 Mental Status: Alert & Oriented x3 Airway Class: Mallampati = 2 Dentition: Reports: Normal Dentition Thyro-Mental Finger Breadths: 3 Mouth Opening Finger Breadths: 3 ROM/Head Extension: Full Lungs: Clear to Auscultation, Normal Respiratory Effort Cardiovascular: Regular Rate, Regular Rhythm - Allergies Allergies/Adverse Reactions: Allergies Allergy/AdvReac Type Severity Reaction Status Date / Time amitriptyline Allergy Tachycardia Verified 02/04/21 12:20 ciprofloxacin [From Cipro] Allergy Rash Verified 02/04/21 12:20 gabapentin Allergy Other Verified 02/04/21 12:20 hydrocodone Allergy Hyperactivi Verified 02/04/21 12:20 ty Sulfa (Sulfonamide Allergy Rash Verified 02/04/21 12:20 Antibiotics) - Acknowledgements Anesthesia Type Planned: General Anesthesia Pt an Appropriate Candidate for the Planned Anesthesia: Yes Alternatives and Risks of Anesthesia Discussed w Pt/Guardian: Yes Pt/Guardian Understands and Agrees with Anesthesia Plan: Yes PreAnesthesia Questionnaire HEENT History: Reports: Allergic Rhinitis, Other (See Below) Other HEENT History: wears glasses Cardiovascular History: Reports: Hypertension Other Cardiovascular History: no longer takes medication for hypertension Respiratory History: Reports: Sleep Apnea Other Respiratory History: uses CPAP every night Gastrointestinal History: Reports: GERD, Other (See Below) Other Gastrointestinal History: recent colitis and abdominal pain 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 History: Reports: None [employer]ER History: Reports: Musculoskeletal History: Reports: Neck Pain, Chronic, Osteoarthritis Neurological History: Reports: Other (See Below) Other Neuro History: herniated disc at C5, cervical spinal stenosis Psychiatric History: Reports: Anxiety, Depression, Other (See Below) Other Psychiatric History: hx of claustrophobia Endocrine/Metabolic History: Reports: Obesity/BMI 30+ Hematologic History: Reports: None Immunologic History: Reports: None Oncologic (Cancer) History: Reports: None Dermatologic History: Reports: None - Infectious Disease History Infectious Disease History: Reports: Chicken Pox - Past Surgical History Head Surgeries/Procedures: Reports: None HEENT Surgical History: Reports: None Cardiovascular Surgical History: Reports: None Respiratory Surgical History: Reports: None GI Surgical History: Reports: Cholecystectomy, Colonoscopy Female Surgical History: Reports: Section, Hysterectomy Endocrine Surgical History: Reports: None Neurological Surgical History: Reports: None Musculoskeletal Surgical History: Reports: Other (See Below) Other Musculoskeletal Surgeries/Procedures:: herniated disc in neck, has screw in left foot (bunionectomy) Oncologic Surgical History: Reports: None - SUBSTANCE USE Tobacco Use Status *Q: Never Tobacco User Recreational Drug Use History: No - HOME MEDS Home Medications: Home Meds Ascorbic Acid [Vitamin C] 500 mg PO DAILY 06/02/16 [History] Cholecalciferol (Vitamin D3) [Vitamin D3] 5,000 unit PO DAILY 06/02/16 [History] Diclofenac Sodium [Voltaren] 50 mg PO DAILY PRN 06/02/16 [History] Multivitamin [Daily Multiple Vitamin] 1 tab PO DAILY 06/02/16 [History] Vitamin B Complex 1 cap PO DAILY 06/02/16 [History] buPROPion HCL [Wellbutrin Xl] 450 mg PO DAILY 06/02/16 [History] Omeprazole 20 mg PO ACBREAKFAST 05/13/18 [History] Semaglutide [Ozempic] 1 mg IM WEEKLY 01/18/21 [History] - CURRENT (IN HOUSE) MEDS Current Meds: Current Medications Lactated Ringer's (Ringers, Lactated) 1,000 mls @ 125 mls/hr IV ASDIRECTED KRISTA Discontinued Medications Glycopyrrolate (Glycopyrrolate 0.2 Mg/Ml Sdv) Confirm Administered Dose 0.2 mg .ROUTE .STK-MED ONE Stop: 02/10/21 07:21 Lidocaine (Lidocaine 2% 5 Ml Sdv) Confirm Administered Dose 5 ml .ROUTE .STK-MED ONE Stop: 02/10/21 07:21 Midazolam HCl (Midazolam 1 Mg/Ml 2 Ml Sdv) Confirm Administered Dose 2 mg .ROUTE .STK-MED ONE Stop: 02/10/21 07:21 Propofol (Propofol 200 Mg/20 Ml Sdv) Confirm Administered Dose 600 mg .ROUTE .[facility]-MED ONE Stop: 02/10/21 07:21
[2021-02-10] MEDS ORDERED: Propofol 200 MG/20 ML SDV ONE (10:10)
--- NOTE | 2021-02-10 10:23 | PCM.POSTAN ---
POST ANESTHESIA ASSESSMENT - MENTAL STATUS Mental Status: Somnolent - VITAL SIGNS Vital Signs: Last Vital Signs Temp 97.9 F 02/10/21 08:10 Pulse 100 02/10/21 08:10 Resp 16 02/10/21 08:10 BP 127/75 02/10/21 08:10 Pulse Ox 96 02/10/21 08:10 - RESPIRATORY Respiratory Status: Respiratory Rate WNL, Airway Patent, O2 Saturation Stable - CARDIOVASCULAR CV Status: Pulse Rate WNL, Blood Pressure Stable - GASTROINTESTINAL GI Status: No Symptoms - PAIN Free Text/Narrative:: Resting comfortably - POST OP HYDRATION Hydration Status: Adequate & Stable
--- NOTE | 2021-02-10 10:31 | PCM.OPNOTE ---
- General Post-Op/Procedure Note Date of Surgery/Procedure: 02/10/21 Operative Procedure(s): egd w bx. colonoscopy w bx Findings: see [id number] Pre Op Diagnosis: abnl ct scan and gerd Post-Op Diagnosis: Same Anesthesia Technique: Moderate Sedation Primary Surgeon: Tavo Davis Complications: None Condition: Good
--- NOTE | 2021-02-10 10:44 | PCM48HPAN ---
Post Anesthesia Note - EVALUATION WITHIN 48HRS OF ANESTHETIC Vital Signs in Normal Range: Yes Patient Participated in Evaluation: Yes Respiratory Function Stable: Yes Airway Patent: Yes Cardiovascular Function Stable: Yes Hydration Status Stable: Yes Pain Control Satisfactory: Yes Nausea and Vomiting Control Satisfactory: Yes Mental Status Recovered: Yes Vital Signs: Last Vital Signs Temp 97.3 F 02/10/21 10:20 Pulse 106 H 02/10/21 10:40 Resp 20 02/10/21 10:40 BP 112/66 02/10/21 10:40 Pulse Ox 94 L 02/10/21 10:40 - COMMENTS/OBSERVATIONS Free Text/Narrative:: Pt doing well post-op. VSS. No apparent anesthetic complications. Dr. Christopher Perez
[2021-02-10 12:58] VITALS: BP 118/67; PULSE 99
--- NOTE | 2021-02-10 14:19 | OR ---
SURGEON: Tavo Davis MD DATE OF PROCEDURE: 02/10/2021 PREOPERATIVE DIAGNOSIS: Abnormal CAT scan. POSTOPERATIVE DIAGNOSIS: Abnormal CAT scan. PROCEDURES PERFORMED: 1. Colonoscopy with biopsy. 2. Esophagogastroduodenoscopy with biopsy. DESCRIPTION OF PROCEDURE: Colonoscopy with biopsy: The patient was taken to the endoscopy room. A time out was called, patient identified, and procedure identified. Diprivan was then administrated. Patient went from awake to sleep, hearing doctor talking or door closing is normal. Perineum inspection and digital examination were then performed. A well-lubricated colonoscope was gently inserted through the rectum, advanced past the rectosigmoid junction, the descending colon, splenic flexure, transverse colon, hepatic flexure, ascending colon, arrived to the cecum. Cecum was identified as dictated in the finding. Then the scope was carefully withdrawn while attention was paid to the mucosal surface for any abnormality. Air will be sucked out during the scope withdrawal. At the rectum, retroflexed to examine any rectal diseases, fistula or hemorrhoids. During mucosal examination, abnormality or polyp was noted; picture taken and biopsy performed. Patient tolerated procedure well. There were no intraoperative complications, and Dr. Davis was present throughout the whole procedure. EGD with biopsy: The patient was taken to the endoscopy room, and with the PIPE OR STEAM FITTER FURNACE INSTALLER, Diprivan was administered. A well-lubricated EGD scope was gently inserted through the oropharynx, down the esophagus, passing through the gastroesophageal junction, into the stomach. The mucosa was examined upon the passage. Any etiology will be noted. Once in the stomach, we continued to advance to the distal antrum, passed through the pylorus into the second portion of the duodenum. Again, the mucosa was examined for any abnormality and etiology. The scope was then retrieved back to the stomach and then retroflexed to look at the fundus of the stomach. If a biopsy was indicated, we will biopsy the antrum, body, and gastroesophageal junction. The air will be sucked out while the scope is retrieved to reduce the patient's discomfort. The patient tolerated the procedure well. There were no intraoperative complications. Dr. Davis was present through the whole procedure. Prior to surgery, a time-out had been called, the patient identified, procedure identified and antibiotic administered. FINDINGS: EGD findings: 1. Patient is easily sedated with PIPE OR STEAM FITTER FURNACE INSTALLER and Diprivan, patient is soundly snoring. 2. Oropharynx and proximal esophagus are free of disease, stricture, inflammation. Distal esophagus, Z-line at GE junction at 40, shows salmon- colored change, suggests acid reflux. Stomach rugae are normal in appearance. Antrum looks fine. Duodenum looks fine. Retroflexed look at the fundus of stomach, there is no hiatal hernia. Patient has many, many small polyps, most of them 1 to 2 mm and friable, more in the fundic area. Biopsy done on two of the polyps and then biopsy done at antrum, body, GE junction at 40 and sucked out the gas while scope pulling out. During the whole study, there is no blood, ulcer, bile, or food observed. Colonoscopy findings: 1. Patient is easily sedated with PIPE OR STEAM FITTER FURNACE INSTALLER and Diprivan, patient is soundly snoring. 2. Bowel prep is average with a large amount of liquid stool, no semi-formed stool, no stool ball. Colon rather straightforward. Cecum indicated by ileocecal fold, one-to-one indentation, appendiceal orifice, and ScopeGuide is pointing south. Mucosa examined upon scope pulling out and with some irrigation. Patient does not have diverticulosis; does not have polyp, mass, growth, inflammation, stricture, AV malformation, bleeding; none of those. The abnormal area on the right colon to the proximal transverse colon, biopsied several of the them, and sent for pathology. On grossly examination, the colon mucosa looked normal. Patient has mild external hemorrhoids and mild internal hemorrhoids, and patient would benefit from repeat colonoscopy in 10 years from today or if the pathology of the biopsy comes back indicated otherwise or if clinically indicated otherwise. MARK / GRANT /[id number]
== END 2021-02-10 11:05 | disposition home or self-care (01) ==
LOC: MW.SDS 08:03
PROVIDERS: ATTEND Surgery
DX: K52.9 Noninfective gastroenteritis and colitis, unspecified (principal); K29.50 Unspecified chronic gastritis without bleeding; K64.4 Residual hemorrhoidal skin tags; K64.8 Other hemorrhoids; K31.7 Polyp of stomach and duodenum; G43.909 Migraine, unspecified, not intractable, without status migrainosus; I10 Essential (primary) hypertension; G47.33 Obstructive sleep apnea (adult) (pediatric); K21.9 Gastro-esophageal reflux disease without esophagitis; E78.5 Hyperlipidemia, unspecified; E66.9 Obesity, unspecified; Z88.8 Allergy status to other drugs, medicaments and biological substances; Z88.2 Allergy status to sulfonamides; Z88.5 Allergy status to narcotic agent; Z79.899 Other long term (current) drug therapy; Z98.890 Other specified postprocedural states; Z90.49 Acquired absence of other specified parts of digestive tract; Z68.37 Body mass index [BMI] 37.0-37.9, adult
CPT/HCPCS: 43239; 45380; J2250; J2704; J3490; J7120; 00813